=== PATIENT | male | born 1975 | race Caucasian/White ===

== ENCOUNTER 2017-08-09 11:19 | Emergency (ER) | payer SELFPAY ==
[2017-08-09] MEDS ORDERED: ACETAMINOPHEN 325 MG TABLET PO ONE (11:55)
--- NOTE | 2017-08-09 11:57 | ER Document Report ---
HPI - HPI Patient complains to provider of: Shoulder, hip pain Onset/Duration: Persistent Quality of pain: Achy Pain Level: 4 Context: Patient presents complaining of left shoulder pain off and on for the past 3-4 months. Patient states yesterday he was throwing trash away and whenever he was throwing the trash can over his shoulder he felt it pull. Patient also reports intermittent left hip pain. Patient denies any traumatic injury. Patient states he has seen orthopedics about his shoulder in the past and was scheduled to have an outpatient MRI in July. Patient states whenever he showed up to have the study performed he was informed that his insurance does not cover this test. Associated Symptoms: Other - Left shoulder, left hip pain Exacerbated by: Movement, Walking Relieved by: Denies Similar symptoms previously: Yes Recently seen / treated by doctor: No - ROS ROS below otherwise negative: Yes Systems Reviewed and Negative: Yes All other systems reviewed and negative - CONSTITUTIONAL Constitutional: DENIES: Fever - NEURO Neurology: DENIES: Headache, Weakness - REPRODUCTIVE Reproductive: DENIES: : - MUSCULOSKELETAL Musculoskeletal: REPORTS: Extremity pain. DENIES: Back Pain, Neck Pain - DERM Skin Color: Normal Skin Problems: None Past Medical History - General Information source: Patient - Social History Smoking Status: Never Smoker Frequency of alcohol use: None Drug Abuse: None Occupation: Construction Lives with: Family Family History: Reviewed & Not Pertinent - Medical History Medical History: Negative - Past Medical History Cardiac Medical History: Denies: Hx Coronary Artery Disease, Hx Heart Attack, Hx Hypertension Pulmonary Medical History: Denies: Hx Asthma, Hx Bronchitis, Hx COPD, Hx Pneumonia Neurological Medical History: Denies: Hx Cerebrovascular Accident, Hx Seizures Renal/ Medical History: Reports: Hx Kidney Stones Musculoskeltal Medical History: Denies Hx Arthritis Surgical Hx: Negative - Immunizations Hx Diphtheria, Pertussis, Tetanus Vaccination: Yes Vertical Provider Document - CONSTITUTIONAL Agree With Documented VS: Yes Exam Limitations: No Limitations General Appearance: WD/WN, No Apparent Distress - INFECTION CONTROL TRAVEL OUTSIDE OF THE [place] IN LAST 30 DAYS: No - HEENT HEENT: Atraumatic, Normocephalic Notes: No posterior cervical midline tenderness, step-off or deformity - NECK Neck: Normal Inspection, Supple. negative: Lymphadenopathy-Left, Lymphadenopathy-Right - RESPIRATORY Respiratory: Breath Sounds Normal, No Respiratory Distress O2 Sat by Pulse Oximetry: 97 - CARDIOVASCULAR Cardiovascular: Regular Rate, Regular Rhythm, No Murmur Pulses: Normal: Radial - BACK Back: Normal Inspection - MUSCULOSKELETAL/EXTREMETIES Musculoskeletal/Extremeties: MAEW, FROM, Tender - Left shoulder joint tenderness over anterior superior aspect of humeral head, no dislocation, no deformity, tenderness increases with extension and abduction. Left hip tenderness to lateral and anterior aspect of left hip. Pain reproduced with abduction., No Edema - NEURO Level of Consciousness: Awake, Alert, Appropriate Motor/Sensory: No Motor Deficit - DERM Integumentary: Warm, Dry, No Rash Course - Re-evaluation Re-evalutation: 08/09/17 11:56 Patient states that he has seen orthopedics for the left shoulder pain and had a scheduled MRI appointment. Patient states that the type of Medicaid insurance he has does not cover the study and so he was not able to have this performed. Patient states he did have in-home physical therapy without improvement of his symptoms. Patient is concerned that no imaging studies were ever performed and would like a x-ray performed today. Explained to patient that the x-ray would likely not change his diagnosis or disposition. Patient still would like films performed today. 08/09/17 12:42 No concern for shoulder or hip dislocation or fracture. Patient given copies of radiology report findings and encouraged to follow back up with orthopedic doctor for further evaluation. 08/09/17 12:44 Controlled substance database reviewed - Vital Signs Vital signs: Temp Pulse Resp BP Pulse Ox 98.1 F 67 17 132/89 H 97 08/09/17 11:32 08/09/17 11:32 08/09/17 11:32 08/09/17 11:32 08/09/17 11:32 - Diagnostic Test Radiology reviewed: Image reviewed, Reports reviewed Procedures - Immobilization Left Shoulder Pre-Proc Neuro Vasc Exam: Normal Immobilizer type: Shoulder immobilizer Performed by: PCT Post-Proc Neuro Vasc Exam: Normal Alignment checked and good: Yes Discharge - Discharge Clinical Impression: Left hip pain Sprain of shoulder, left Qualifiers: Encounter type: initial encounter Shoulder sprain type: unspecified sprain Qualified Code(s): S43.402A - Unspecified sprain of left shoulder joint, initial encounter Condition: Stable Disposition: HOME, SELF-CARE Instructions: Ice & Elevation ([facility]), Shoulder Injury ([facility]), Temporary Sling ( [facility]) Additional Instructions: Return immediately for any new or worsening symptoms Followup with your primary care provider, call tomorrow to make a followup appointment Follow-up with orthopedic doctor for further evaluation, call Thursday for an appointment Prescriptions: Tramadol HCl [Ultram 50 mg Tablet] 50 mg PO ASDIR PRN #15 tablet PRN Reason: Forms: Return to Work Referrals: [facility] [Provider Group] - Follow up tomorrow
--- NOTE | 2017-08-09 12:32 | RADIOLOGY REPORT (SQ) ---
EXAM DESCRIPTION: SHOULDER LEFT 2 OR MORE VIEWS COMPLETED DATE/TIME: 08/09/2017 12:17 pm REASON FOR STUDY: shoulder pain COMPARISON: None. NUMBER OF VIEWS: Two view. TECHNIQUE: Frontal and lateral images acquired of the left shoulder. LIMITATIONS: None. FINDINGS: MINERALIZATION: Normal. BONES: No acute fracture or dislocation. No worrisome bone lesions. No significant osteophytes. GLENOHUMERAL JOINT: No significant findings. ACROMIOCLAVICULAR JOINT: No large osteophytes. SOFT TISSUES: No calcifications. VISUALIZED RIBS, SPINE, AND LUNG: No other significant finding. OTHER: No other significant finding. IMPRESSION: NEGATIVE STUDY OF THE LEFT SHOULDER. NO EXPLANATION FOR PAIN. TECHNICAL DOCUMENTATION: JOB ID: [id number] [employer]- All Rights Reserved Reading location - IP/workstation name: [email or web address]
--- NOTE | 2017-08-09 12:33 | RADIOLOGY REPORT (SQ) ---
EXAM DESCRIPTION: HIP LEFT AP/LATERAL COMPLETED DATE/TIME: 08/09/2017 12:17 pm REASON FOR STUDY: left hip pain COMPARISON: None. NUMBER OF VIEWS: Two views. TECHNIQUE: AP pelvis and additional frog-leg view of the left hip. LIMITATIONS: None. FINDINGS: MINERALIZATION: Normal. LEFT HIP: No fracture or dislocation. No worrisome bone lesions. RIGHT HIP: No fracture or dislocation. No worrisome bone lesions. PUBIS AND ISCHIUM: No fracture. PELVIS: No fracture. SACRUM: No fracture or dislocation. No worrisome bone lesions. LOWER LUMBAR SPINE: No fracture or dislocation. No worrisome bone lesions. No significant disc disea se. SOFT TISSUES: No findings. OTHER: No other significant finding. IMPRESSION: NEGATIVE STUDY OF THE LEFT HIP AND PELVIS. NO RADIOGRAPHIC EVIDENCE OF ACUTE INJURY. TECHNICAL DOCUMENTATION: JOB ID: [id number] [employer] All Rights Reserved Reading location - IP/workstation name: [email or web address]
[2017-08-09 13:01] VITALS: BP 128/90
== END 2017-08-09 13:09 | disposition home or self-care (01) ==
LOC: ER 11:19
DX: S43.402A Unspecified sprain of left shoulder joint, initial encounter (principal); M25.512 Pain in left shoulder; X50.0XXA Overexertion from strenuous movement or load, initial encounter; Y93.89 Activity, other specified; Y92.89 Other specified places as the place of occurrence of the external cause; M25.552 Pain in left hip
CPT/HCPCS: 99283; 73502; 73030; L3650

== ENCOUNTER 2017-09-02 08:18 | Emergency (ER) | payer SELFPAY ==
[2017-09-02] MEDS ORDERED: ACETAMINOPHEN 325 MG TABLET PO ONE (08:22)
[2017-09-02] MEDS ORDERED: KETOROLAC TROMETHAMINE INJ/PF 30 MG/1 ML SDV IV ONE (08:56)
[2017-09-02] MEDS ORDERED: ONDANSETRON HCL INJ/PF 4 MG/2 ML SDV IV ONE (08:56)
[2017-09-02] MEDS ORDERED: NORMAL SALINE 1000 ML 1,000 ML IV PRN (08:57)
[2017-09-02 09:10] LABS: ABSOLUTE BASOPHILS # (AUTO) 0.1 10^3/uL (0.0-0.2); ABSOLUTE EOSINOPHILS # (AUTO) 0.2 10^3/uL (0.0-0.6); ABSOLUTE LYMPHOCYTES (AUTO) 2.8 10^3/uL (0.5-4.7); ABSOLUTE MONOCYTES (AUTO) 0.7 10^3/uL (0.1-1.4); BASOPHILS % (AUTO) 0.7 % (0-2); EOSINOPHILS % (AUTO) 1.7 % (0-6); HEMATOCRIT 45.7 % (37.9-51.0); HEMOGLOBIN 15.4 g/dL (13.5-17.0); MEAN CORPUSCULAR HEMOGLOBIN 29.9 pg (27.0-33.4); MEAN CORPUSCULAR HGB CONC 33.8 g/dL (32.0-36.0); MEAN CORPUSCULAR VOLUME 89 fl (80-97); MONOCYTES % (AUTO) 5.6 % (3-13); PLATELET COUNT 189 10^3/uL (150-450); RED BLOOD COUNT 5.16 10^6/uL (4.35-5.55); RED CELL DISTRIBUTION WIDTH 13.5 % (11.5-14.0); TOTAL CELLS COUNTED % (AUTO) 100 %; WHITE BLOOD COUNT 11.8 10^3/uL (4.0-10.5)
[2017-09-02 09:41] LABS: ALANINE AMINOTRANSFERASE 37 U/L (21-72); ALBUMIN 4.6 g/dL (3.5-5.0); ALKALINE PHOSPHATASE 58 U/L (38-126); ANION GAP 11 (5-19); ASPARTATE AMINO TRANSFERASE 23 U/L (17-59); BILIRUBIN,DIRECT 0.2 mg/dL (0.0-0.4); BILIRUBIN,TOTAL 0.2 mg/dL (0.2-1.3); BLOOD UREA NITROGEN 23 mg/dL (7-20); CALCIUM 9.5 mg/dL (8.4-10.2); CARBON DIOXIDE 26 mmol/L (22-30); CHLORIDE 104 mmol/L (98-107); GLUCOSE 156 mg/dL (75-110); LIPASE 912.8 U/L (23-300); POTASSIUM 4.2 mmol/L (3.6-5.0); SODIUM 141.4 mmol/L (137-145)
[2017-09-02] MEDS: MORPHINE SULFATE 10 MG/ML INJ IV PRN ×2 (09:41→10:25)
--- NOTE | 2017-09-02 10:09 | RADIOLOGY REPORT (SQ) ---
EXAM DESCRIPTION: CT ABD/PELVIS NO ORAL OR IV COMPLETED DATE/TIME: 09/02/2017 9:50 am REASON FOR STUDY: Renal stone COMPARISON: 09/02/2015 TECHNIQUE: CT scan of the abdomen and pelvis performed without intravenous or oral contrast. Images reviewed with lung, soft tissue, and bone windows. Reconstructed coronal and sagittal MPR images revi ewed. All images stored on PACS. All CT scanners at this facility use dose modulation, iterative reconstruction, and/or weight based d osing when appropriate to reduce radiation dose to as low as reasonably achievable (ALARA). [facility]: Dose Right [facility]: CareDose [facility]: Dose Right [facility]: Teradose 4D [facility]: Smart Coolest Cooler RADIATION DOSE: CT Rad equipment meets quality standard of care and radiation dose reduction techniq ues were employed. CTDIvol: 10.7 mGy. DLP: 577 mGy-cm.mGy. LIMITATIONS: None. FINDINGS: LOWER CHEST: No significant findings. No nodules or infiltrates. NON-CONTRASTED LIVER, SPLEEN, ADRENALS: Evaluation limited by lack of IV contrast. No identified sign ificant masses. PANCREAS: No masses. No peripancreatic inflammatory changes. GALLBLADDER: No identified stones by CT criteria. No inflammatory changes to suggest cholecystitis. RIGHT KIDNEY AND URETER: No suspicious masses. Assessment limited by lack of IV contrast. 8 mm calc ulus lower pole. No hydronephrosis or hydroureter. LEFT KIDNEY AND URETER: No suspicious masses. Assessment limited by lack of IV contrast. 1 mm stone in the urinary bladder. No renal calculi. Mild hydronephrosis. AORTA AND RETROPERITONEUM: No aneurysm. No retroperitoneal masses or adenopathy. BOWEL AND PERITONEAL CAVITY: No obvious masses or inflammatory changes. No free fluid. APPENDIX: Small appendicolith. PELVIS, BLADDER, AND ABDOMINAL WALL:No abnormal masses. No free fluid. Bladder normal. BONES: No significant findings. OTHER: No other significant finding. IMPRESSION: Recent passage of 1 mm stone from the right ureter into the urinary bladder. Mild hydro nephrosis. COMMENT: Quality ID # [id number]: Final reports with documentation of one or more dose reduction techniques (e.g., Automated exposure control, adjustment of the mA and/or kV according to patient size, use of iterative reconstruction technique) TECHNICAL DOCUMENTATION: JOB ID: [id number] [employer]- All Rights Reserved Reading location - IP/workstation name: [email or web address]
[2017-09-02 11:12] LABS: AMORPHOUS SEDIMENT,URINE 1+ /HPF; APPEARANCE,URINE TURBID; BILIRUBIN,URINE NEGATIVE (NEGATIVE); CALCIUM OXALATE CRYSTALS,URINE MODERATE /HPF; COLOR,URINE YELLOW; GLUCOSE, URINE NEGATIVE (NEGATIVE); KETONES,URINE NEGATIVE (NEGATIVE); LEUKOCYTE ESTERASE,URINE NEGATIVE (NEGATIVE); NITRITE,URINE NEGATIVE (NEGATIVE); PROTEIN,URINE 30 mg/dL (NEGATIVE); URINE SPECIFIC GRAVITY 1.025; UROBILINOGEN,URINE NEGATIVE mg/dL (<2.0)
[2017-09-02] MEDS ORDERED: DICYCLOMINE HCL INJ 20 MG/2 ML AMPULE IM PRN (11:40)
--- NOTE | 2017-09-02 11:48 | ER Document Report ---
ED GI/ - General Chief Complaint: Flank Pain Stated Complaint: BACK/STOMACH PAIN Time Seen by Provider: 09/02/17 08:56 Notes: History of present illness-41 years old male presents today with sudden onset of right flank pain radiating to the groin early this morning. Associated with nausea. Had a history of kidney stone. Denies any fever chills or other constitutional symptoms denies any hematuria dysuria frequency urgency. REVIEW OF SYSTEMS: CONSTITUTIONAL : Denies fever, chills, or sweats. Denies recent illness. EENT: Denies eye, ear, throat, or mouth pain or symptoms. Denies nasal or sinus congestion or discharge. Denies throat, tongue, or mouth swelling or difficulty swallowing. CARDIOVASCULAR: Denies chest pain. Denies palpitations or racing or irregular heart beat. Denies ankle edema. RESPIRATORY: Denies cough, cold, or chest congestion. Denies shortness of breath, difficulty breathing, or wheezing. GASTROINTESTINAL: Denies abdominal pain or distention. Denies nausea, vomiting , or diarrhea. Denies blood in vomitus, stools, or per rectum. Denies black, tarry stools. Denies constipation. GENITOURINARY: Denies difficulty urinating, painful urination, burning, frequency, blood in urine, or discharge. MUSCULOSKELETAL: Denies back or neck pain or stiffness. Denies joint pain or swelling. SKIN: Denies rash, lesions or sores. HEMATOLOGIC : Denies easy bruising or bleeding. LYMPHATIC: Denies swollen, enlarged glands. NEUROLOGICAL: Denies confusion or altered mental status. Denies passing out or loss of consciousness. Denies dizziness or lightheadedness. Denies headache. Denies weakness or paralysis or loss of use of either side. Denies problems with gait or speech. Denies sensory loss, numbness, or tingling. Denies seizures. PSYCHIATRIC: Denies anxiety or stress. Denies depression, suicidal ideation, or homicidal ideation. ALL OTHER SYSTEMS REVIEWED AND NEGATIVE. Dictation was performed using [employer] recognition software PHYSICAL EXAMINATION: GENERAL: Well-appearing, seems to be in acute pain HEAD: Atraumatic, normocephalic. EYES: Pupils equal round and reactive to light, extraocular movements intact, sclera anicteric, conjunctiva are normal. ENT: Nares patent, oropharynx clear without exudates. Moist mucous membranes. NECK: Normal range of motion, supple without lymphadenopathy LUNGS: Breath sounds clear to auscultation bilaterally and equal. No wheezes rales or rhonchi. HEART: Regular rate and rhythm without murmurs ABDOMEN: Soft, nontender, nondistended abdomen. No guarding, no rebound. No masses appreciated. Musculoskeletal: Normal range of motion, no pitting or edema. No cyanosis. NEUROLOGICAL: Cranial nerves grossly intact. Normal speech, normal gait. Normal sensory, motor exams PSYCH: Normal mood, normal affect. SKIN: Warm, Dry, normal turgor, no rashes or lesions noted. TRAVEL OUTSIDE OF THE [place] IN LAST 30 DAYS: No - HPI Patient complains to provider of: Abdominal pain, Flank pain Onset: Just prior to arrival Timing/Duration: Sudden Severity at maximum: Severe Severity in ED: Severe - Related Data Allergies/Adverse Reactions: cephalexin monohydrate [From Keflex] Allergy (Intermediate, Verified 09/02/17 09 :31) Hives naproxen [From Naprosyn] Allergy (Intermediate, Verified 09/02/17 09:31) Hives Past Medical History - Social History Smoking Status: Unknown if Ever Smoked Chew tobacco use (# tins/day): No Frequency of alcohol use: None Drug Abuse: None Family History: Reviewed & Not Pertinent Patient has suicidal ideation: No Patient has homicidal ideation: No - Past Medical History Cardiac Medical History: Denies: Hx Coronary Artery Disease, Hx Heart Attack, Hx Hypertension Pulmonary Medical History: Denies: Hx Asthma, Hx Bronchitis, Hx COPD, Hx Pneumonia Neurological Medical History: Denies: Hx Cerebrovascular Accident, Hx Seizures Renal/ Medical History: Reports: Hx Kidney Stones. Denies: Hx Peritoneal Dialysis Musculoskeltal Medical History: Denies Hx Arthritis - Immunizations Hx Diphtheria, Pertussis, Tetanus Vaccination: Yes Review of Systems - Review of Systems Notes: As per history of complain Physical Exam - Vital signs Vitals: Temp Pulse Resp BP Pulse Ox 97.7 F 64 18 146/92 H 98 09/02/17 08:22 09/02/17 08:22 09/02/17 08:22 09/02/17 08:22 09/02/17 08:22 Course - Re-evaluation Re-evalutation: 09/02/17 11:48 Given Toradol, morphine 2, CT of the abdomen was done for renal protocol. IV fluids were given. - Vital Signs Vital signs: Temp Pulse Resp BP Pulse Ox 97.4 F 58 L 16 146/86 H 97 09/02/17 10:10 09/02/17 10:10 09/02/17 10:10 09/02/17 10:10 09/02/17 10:10 - Laboratory Result Diagrams: 09/02/17 08:50 09/02/17 08:50 Laboratory results interpreted by me: 09/02/17 09/02/17 09/02/17 08:50 08:50 08:50 WBC 11.8 H BUN 23 H Glucose 156 H Lipase 912.8 H Urine Protein 30 H Urine Blood SMALL H Urine Ascorbic Acid 20 H - Diagnostic Test Radiology reviewed: Reports reviewed - CT of the abdomen shows a right renal stone of 1 mm past is in the bladder. Discharge - Discharge Clinical Impression: Renal calculus or stone Diverticulitis Qualifiers: Diverticulitis site: large intestine Diverticulitis bleeding: without bleeding Diverticulitis complication: without perforation or abscess Qualified Code(s): K57.32 - Diverticulitis of large intestine without perforation or abscess without bleeding Condition: Fair Instructions: Kidney Stone ([facility]), Diverticulitis ([facility]) Prescriptions: Ketorolac Tromethamine [Toradol 10 mg Tablet] 10 mg PO Q8HP PRN #14 tablet PRN Reason: Ciprofloxacin HCl [Cipro 500 mg Tablet] 500 mg PO BID #14 tablet Metronidazole [Flagyl 250 mg Tablet] 250 mg PO Q8 #21 tablet Oxycodone HCl/Acetaminophen [Percocet 5-325 mg Tablet] 1 - 2 tab PO Q4H PRN #15 tablet PRN Reason: Tamsulosin HCl 0.4 mg PO DAILY #30 cap.er.24h Referrals: TAYLOR CHAVIRA PA-C [Primary Care Provider] - Follow up as needed
[2017-09-02 13:19] VITALS: BP 120/76
== END 2017-09-02 13:20 | disposition home or self-care (01) ==
LOC: ER 08:18
DX: N20.0 Calculus of kidney (principal); K57.32 Diverticulitis of large intestine without perforation or abscess without bleeding; M54.9 Dorsalgia, unspecified; R10.30 Lower abdominal pain, unspecified; R11.0 Nausea
CPT/HCPCS: 99284; 96372; 96361; 96374; 96375; 36415; 83690; 85025; 80053; 81001; 74176; J0500; J1885; J2270; J2405; J7030

== ENCOUNTER 2020-04-14 12:30 | Emergency (ER) | payer SELFPAY ==
--- NOTE | 2020-04-14 12:49 | ER Document Report ---
ED Medical Screen (RME) - General Chief Complaint: Shoulder Pain Stated Complaint: SHOULDER PAIN Time Seen by Provider: 04/14/20 12:44 Primary Care Provider: TAYLOR CHAVIRA PA-C [Primary Care Provider] - Follow up as needed Mode of Arrival: Ambulatory Information source: Patient Notes: 44-year-old male patient presented emergency department chief complaint of right shoulder pain. Patient reports shoulder pain ongoing for the last 3 months. He has not seen any provider for this. He states he has limited range of motion and reduced strength due to pain. He is now reporting that he also has pain to head the right posterior scapula/rib area that is worse with deep breaths. Tenderness along the posterior right scapular area, lung sounds clear and equal bilaterally. Tenderness on the lateral anterior right shoulder. No obvious deformity. I have greeted and performed a rapid initial assessment of this patient. A comprehensive ED assessment and evaluation of the patient, analysis of test results and completion of the medical decision making process will be conducted by additional ED providers. I have specifically instructed the patient or family members with the patient to immediately return to any nursing staff should anything change in the patient's condition or with their chief complaint. TRAVEL OUTSIDE OF THE [place] IN LAST 30 DAYS: No - Related Data Allergies/Adverse Reactions: cephalexin monohydrate [From Keflex] Allergy (Intermediate, Verified 04/14/20 12:43) Hives naproxen [From Naprosyn] Allergy (Intermediate, Verified 04/14/20 12:43) Hives Past Medical History - Social History Chew tobacco use (# tins/day): No Frequency of alcohol use: None Drug Abuse: None - Past Medical History Cardiac Medical History: Denies: Hx Coronary Artery Disease, Hx Heart Attack, Hx Hypertension Pulmonary Medical History: Denies: Hx Asthma, Hx Bronchitis, Hx COPD, Hx Pneumonia Neurological Medical History: Denies: Hx Cerebrovascular Accident, Hx Seizures Renal/ Medical History: Reports: Hx Kidney Stones. Denies: Hx Peritoneal Dialysis Musculoskeltal Medical History: Denies Hx Arthritis - Immunizations Hx Diphtheria, Pertussis, Tetanus Vaccination: Yes Physical Exam - Vital signs Vitals: Temp Pulse Resp BP Pulse Ox 97.8 F 75 16 150/89 H 96 04/14/20 12:41 04/14/20 12:41 04/14/20 12:41 04/14/20 12:41 04/14/20 12:41 Course - Vital Signs Vital signs: Temp Pulse Resp BP Pulse Ox 97.8 F 75 16 150/89 H 96 04/14/20 12:43 04/14/20 12:41 04/14/20 12:41 04/14/20 12:41 04/14/20 12:41 Doctor's Discharge - Discharge Referrals: TAYLOR CHAVIRA PA-C [Primary Care Provider] - Follow up as needed
--- NOTE | 2020-04-14 13:54 | RADIOLOGY REPORT (SQ) ---
EXAM DESCRIPTION: SHOULDER RIGHT 2 OR MORE VIEWS IMAGES COMPLETED DATE/TIME: 04/14/2020 1:30 pm REASON FOR STUDY: R shoulder pain x3 months COMPARISON: None. NUMBER OF VIEWS: Three views. TECHNIQUE: Internal rotation, external rotation, and Y view images acquired of the right shoulder. LIMITATIONS: None. FINDINGS: MINERALIZATION: Normal. BONES: No acute fracture. No worrisome bone lesions. JOINTS: No dislocation. VISUALIZED LUNGS AND RIBS: No pneumothorax. No rib fracture. SOFT TISSUES: No radiopaque foreign body. OTHER: No other significant finding. IMPRESSION: NEGATIVE STUDY OF THE RIGHT SHOULDER. NO RADIOGRAPHIC EVIDENCE OF ACUTE INJURY. TECHNICAL DOCUMENTATION: JOB ID: [id number] 2010 [employer]- All Rights Reserved Reading location - IP/workstation name: [email or web address]
--- NOTE | 2020-04-14 13:54 | RADIOLOGY REPORT (SQ) ---
EXAM DESCRIPTION: RIBS RIGHT W/PA CHEST IMAGES COMPLETED DATE/TIME: 04/14/2020 1:30 pm REASON FOR STUDY: R shoulder pain x3 months COMPARISON: None TECHNIQUE: Frontal view of the chest and additional views of the left ribs acquired. NUMBER OF VIEWS: Four view. LIMITATIONS: None. FINDINGS: FRONTAL CXR: Basilar atelectasis. No pneumothorax. RIBS: No displaced rib fractures. No lytic or blastic bony lesions. OTHER: No other significant finding. IMPRESSION: NO PNEUMOTHORAX. NO DISPLACED RIB FRACTURES. Basilar atelectasis. COMMENT: SITE OF TRAUMA/COMPLAINT MARKED/STAMP COMPLETED: No TECHNICAL DOCUMENTATION: JOB ID: [id number] 2010 [employer]- All Rights Reserved Reading location - IP/workstation name: [email or web address]
--- NOTE | 2020-04-14 14:39 | ER Document Report ---
HPI - HPI Time Seen by Provider: 04/14/20 12:44 Pain Level: 2 Notes: 44-year-old male patient presented emergency department chief complaint of right shoulder pain. Patient reports shoulder pain ongoing for the last 3 months. He has not seen any provider for this. He states he has limited range of motion and reduced strength due to pain. He is now reporting that he also has pain to head the right posterior scapula/rib area that is worse with deep breaths. - ROS Systems Reviewed and Negative: Yes All other systems reviewed and negative - REPRODUCTIVE Reproductive: DENIES: : - MUSCULOSKELETAL Musculoskeletal: REPORTS: Extremity pain, Back Pain Past Medical History - General Information source: Patient - Social History Smoking Status: Never Smoker Chew tobacco use (# tins/day): No Frequency of alcohol use: None Drug Abuse: None Family History: Reviewed & Not Pertinent Patient has homicidal ideation: No Renal/ Medical History: Reports: Hx Kidney Stones. Denies: Hx Peritoneal Dialysis Surgical Hx: Negative - Immunizations Hx Diphtheria, Pertussis, Tetanus Vaccination: Yes Vertical Provider Document - CONSTITUTIONAL Notes: PHYSICAL EXAMINATION: GENERAL: Well-appearing, well-nourished and in no acute distress. HEAD: Atraumatic, normocephalic. EYES: Pupils equal round extraocular movements intact, conjunctiva are normal. ENT: Nares patent NECK: Normal range of motion LUNGS: No respiratory distress, lung sounds clear and equal bilaterally. Musculoskeletal: Limited range of motion to right shoulder secondary to pain. No obvious deformity, no crepitus on palpation. Tenderness mostly over the anterior and lateral aspects of the right shoulder. Patient also has tenderness with palpation over the right scapular area. NEUROLOGICAL: Normal speech, normal gait. PSYCH: Normal mood, normal affect. SKIN: Warm, Dry, normal turgor, no rashes or lesions noted. - INFECTION CONTROL TRAVEL OUTSIDE OF THE [place] IN LAST 30 DAYS: No Course - Re-evaluation Re-evalutation: Ribs w/Chest X-Ray 04/14/20 12:47 IMPRESSION: NO PNEUMOTHORAX. NO DISPLACED RIB FRACTURES. Basilar atelectasis. Shoulder X-Ray 04/14/20 12:47 IMPRESSION: NEGATIVE STUDY OF THE RIGHT SHOULDER. NO RADIOGRAPHIC EVIDENCE OF ACUTE INJURY. - Vital Signs Vital signs: Temp Pulse Resp BP Pulse Ox 97.8 F 75 16 150/89 H 96 04/14/20 12:43 04/14/20 12:41 04/14/20 12:41 04/14/20 12:41 04/14/20 12:41 Procedures - Immobilization Right arm Immobilizer type: Sling Performed by: RN PCT Post-Proc Neuro Vasc Exam: Normal Alignment checked and good: Yes Discharge - Discharge Clinical Impression: Musculoskeletal strain Shoulder pain Qualifiers: Chronicity: acute Laterality: right Qualified Code(s): M25.511 - Pain in right shoulder Condition: Stable Disposition: HOME, SELF-CARE Additional Instructions: Shoulder Injury You have injured your shoulder. This usually results from stretching or tearing of the tendons during trauma. Time and protection are required in order to heal properly. Many injuries are quite disabling, and should be taken seriously. Initial treatment includes cold packs and a sling to rest the shoulder. The physician has assessed the seriousness of your injury, and has outlined a treatment plan. Understand that this treatment may change, depending on how you progress. If a re-examination was recommended, it is important that you follow up as instructed. Some shoulder injuries (such as partial tear of the rotator cuff) are only suspected after you've failed to improve. Call us if there's severe pain, numbness, or loss of function. The x-rays were negative for any fracture or dislocation. You will need to follow-up with an orthopedic doctor regarding your shoulder pain. I believe the pain over the scapular area is musculoskeletal. We will try you on some medication for this. Again call orthopedics Thursday or Thursday morning to schedule an appointment. You may want to try putting heat to the area as this may help with the pain. Prescriptions: Ibuprofen [Motrin 600 mg Tablet] 600 mg PO Q6HP PRN #30 tablet PRN Reason: Hydrocodone/Acetaminophen [[place] 5-325 mg Tablet] 1 tab PO Q6HP PRN #10 tablet PRN Reason: Methocarbamol [Robaxin 750 mg Tablet] 750 mg PO Q4 #30 tablet Referrals: ROSEANN AUGUSTINE DO [ACTIVE STAFF] - Follow up as needed
[2020-04-14 14:46] VITALS: BP 143/94
== END 2020-04-14 14:58 | disposition home or self-care (01) ==
LOC: ER 12:30
DX: S46.911A Strain of unspecified muscle, fascia and tendon at shoulder and upper arm level, right arm, initial encounter (principal); M25.511 Pain in right shoulder; M54.9 Dorsalgia, unspecified; R07.81 Pleurodynia; X58.XXXA Exposure to other specified factors, initial encounter
CPT/HCPCS: 99284